=== PATIENT | female | born 1995 | race Caucasian/White ===

== ENCOUNTER 2016-09-25 21:00 | Emergency (ER) | payer SELFPAY ==
[~2016-09-25] VITALS: Ht 154.9 cm; Wt 63.5 kg
[~2016-09-25 21:00] MED LIST: ALBU1.25 IH; ALBU8.5H6 IH
[2016-09-25 21:22] VITALS: BP 145/84
--- NOTE | 2016-09-25 21:37 | PHYS DOC ---
Past Medical History Past Medical History: Asthma Past Surgical History: Other Additional Past Surgical Histo: Eye surgery as a child Alcohol Use: Occasionally Drug Use: Marijuana Adult General Chief Complaint Chief Complaint: COUGH HPI HPI Patient is a 20 year old female presents emergency department stating that she has had sinus pressure with migraine headache over the frontal sinus area. She states that she had this upper respiratory infection approximately 2 weeks which she that she had recovered. She states Friday she started developing the frontal pressure and again in the sinuses and developed a cough. She is asthmatic patient she has been doing her respiratory treatments at home with no relief. She's been taken [id number] medications for cough and congestion. Review of Systems Review of Systems Constitutional: Denies fever or chills [] Eyes: Denies change in visual acuity, redness, or eye pain [] HENT: nasal congestion denies sore throat [] Respiratory: cough with shortness of breath [] Cardiovascular: No additional information not addressed in HPI [] GI: Denies abdominal pain, nausea, vomiting, bloody stools or diarrhea [] : Denies dysuria or hematuria [] Musculoskeletal: Denies back pain or joint pain [] Integument: Denies rash or skin lesions [] Neurologic: Denies headache, focal weakness or sensory changes [] Endocrine: Denies polyuria or polydipsia [] Current Medications Current Medications Current Medications Medications (Trade) Dose Ordered Sig/Diann Start Time Stop Time Status Last Admin Dose Admin Albuterol/ Ipratropium (Duoneb) 3 ml 1X ONCE 09/25/16 21:45 09/25/16 21:46 DC 09/25/16 21:44 3 ML Prednisone (Prednisone) 40 mg 1X ONCE 09/25/16 21:45 09/25/16 21:46 DC Allergies Allergies Allergies Coded Allergies Type Severity Reaction Last Updated Verified No Known Drug Allergies 06/17/15 No Physical Exam Physical Exam Constitutional: Well developed, well nourished, no acute distress, non-toxic appearance. [] HENT: Normocephalic, atraumatic, bilateral external ears normal, oropharynx moist, no oral exudates, nose normal. Bilateral tympanic membranes appear to be bulging with redness noted. Patient with frontal and maxillary sinus tenderness noted. Patient with throat head with no erythematous no exudate noted. Eyes: PERRLA, EOMI, conjunctiva normal, no discharge. [] Neck: Normal range of motion, no tenderness, supple, no stridor. [] Cardiovascular:Heart rate regular rhythm, no murmur [] Lungs & Thorax: Bilateral breath sounds clear to auscultation [] Skin: Warm, dry, no erythema, no rash. [] Back: No tenderness Extremities: No tenderness, no cyanosis, no clubbing, ROM intact, no edema. [] Neurologic: Alert and oriented X 3, normal motor function, normal sensory function, no focal deficits noted. [] Psychologic: Affect normal, judgement normal, mood normal. [] Current Patient Data Vital Signs Vital Signs Date Time Temp Pulse Resp B/P (MAP) Pulse Ox O2 Delivery O2 Flow Rate FiO2 09/25/16 21:45 98 Room Air 09/25/16 21:22 98.2 100 22 98.2 EKG EKG [] Radiology/Procedures Radiology/Procedures [] Course & Med Decision Making Course & Med Decision Making Pertinent Labs and Imaging studies reviewed. (See chart for details) Patient was provided with a DuoNeb treatment here in the emergency department. She he was provided with steroids as well. She'll be discharged home with DuoNeb treatments, an albuterol rescue inhaler, and prednisone. She'll also be provided with Augmentin. Patient will be discharged home in stable condition signs symptoms to return back to emergency department as been provided. [] Dragon Disclaimer Dragon Disclaimer This electronic medical record was generated, in whole or in part, using a voice recognition dictation system. Departure Departure Impression: Primary Impression: Sinusitis, acute Disposition: 01 HOME, SELF-CARE Condition: STABLE Referrals: ARNULFO ROCK MD (PCP) Patient Instructions: Sinusitis, [id number] Additional Instructions: Activity as tolerated. Medications as prescribed. You may use Mucinex DM [id number] to help relieve the sinus pressure in help with cough and congestion. Drink plenty of fluids. Tylenol or ibuprofen for pain and discomfort. Follow-up with your primary care physician in the next 3-5 days. Return back to emergency prior signs symptoms of become worse. Scripts Prednisone (PREDNISONE) 20 Mg Tablet 40 MG PO DAILY for 14 Days, #28 TAB Prov: ODETTE KUMRA APRN 09/25/16 Amoxicillin/Potassium Clav (AUGMENTIN 875-125 TABLET) 1 Each Tablet 1 TAB PO BID, #20 TAB Prov: ODETTE KUMAR APRN 09/25/16 Albuterol Sulfate (PROAIR HFA INHALER) 8.5 Gm Hfa.aer.ad 1 PUFF INH PRN Q6HRS Y for SHORTNESS OF BREATH, #1 INHALER 0 Refills Prov: ODETTE KUMAR APRN 09/25/16 Ipratropium/Albuterol Sulfate (DUONEB 0.5-3(2.5) MG/3 ML) 3 Ml Ampul.neb 3 ML NEB QID, #1 EACH Prov: ODETTE KUMAR APRN 09/25/16 ODETTE KUMAR APRN September 25, 2016 21:37
[2016-09-25] MEDS ORDERED: IPRATRPIUM/ALBUTEROL 0.5/2.5MG 3 ML NEBU. NEB ONE (21:45)
[2016-09-25] MEDS ORDERED: predniSONE 20 MG TABLET PO ONE (21:45)
[2016-09-25] MEDS ORDERED: IPRA3AMP NEB (22:01)
[2016-09-25] MEDS ORDERED: PRED20TA PO (22:01)
[2016-09-25] MEDS ORDERED: AMOX1TAB61 PO (22:01)
[2016-09-25] MEDS ORDERED: PROAIR HFA8.5 GM INH (22:01)
== END 2016-09-25 22:10 | disposition home or self-care (01) ==
LOC: ER 21:00
DX: J01.90 Acute sinusitis, unspecified (principal); J45.909 Unspecified asthma, uncomplicated; F12.10 Cannabis abuse, uncomplicated
CPT/HCPCS: 94250; 94640; 99283; J7512; J7620

== ENCOUNTER 2016-12-22 19:38 | Emergency (ER) | payer BC ==
[~2016-12-22 19:38] MED LIST changes: +AMOX1TAB61 PO; +IPRA3AMP NEB; +PRED20TA PO; +PROAIR HFA8.5 GM INH
[2016-12-22 19:42] VITALS: BP 140/86
[2016-12-22] MEDS ORDERED: predniSONE 20 MG TABLET PO ONE (20:00)
[2016-12-22] MEDS ORDERED: IPRATRPIUM/ALBUTEROL 0.5/2.5MG 3 ML NEBU. NEB ONE (20:00)
--- NOTE | 2016-12-22 20:07 | PHYS DOC ---
Past Medical History Past Medical History: Asthma Past Surgical History: Other Additional Past Surgical Histo: Eye surgery as a child Alcohol Use: Occasionally Drug Use: Marijuana Adult General Chief Complaint Chief Complaint: Congestion HPI HPI Patient is a 21 year old female presents to the emergency department stating that she has been having a cough and congestion for the last 4 weeks. She states that she's been having some shortness of air difficulty breathing she's been using her albuterol inhaler. She states that she was seen here in August and was placed on antibiotic as well as prednisone. She states that this has not helped any of her problems. She states that she does smoke occasionally when she has been drinking. Patient denies fever, chills or any nausea vomiting. Review of Systems Review of Systems Constitutional: Denies fever or chills [] Eyes: Denies change in visual acuity, redness, or eye pain [] HENT: Complaining of nasal congestion and sore throat Respiratory: Complaining of cough and shortness of air Cardiovascular: No additional information not addressed in HPI [] GI: Denies abdominal pain, nausea, vomiting, bloody stools or diarrhea [] : Denies dysuria or hematuria [] Musculoskeletal: Denies back pain or joint pain [] Integument: Denies rash or skin lesions [] Neurologic: Denies headache, focal weakness or sensory changes [] Endocrine: Denies polyuria or polydipsia [] Current Medications Current Medications Current Medications Medications (Trade) Dose Ordered Sig/Diann Start Time Stop Time Status Last Admin Dose Admin Albuterol Sulfate (Ventolin Neb Soln) 2.5 mg 1X ONCE 12/22/16 20:45 12/22/16 20:52 DC 12/22/16 21:01 2.5 MG Albuterol/ Ipratropium (Duoneb) 3 ml 1X ONCE 12/22/16 20:00 12/22/16 20:06 DC 12/22/16 20:22 3 ML Prednisone (Prednisone) 40 mg 1X ONCE 12/22/16 20:00 12/22/16 20:06 DC 12/22/16 20:34 40 MG Allergies Allergies Allergies Coded Allergies Type Severity Reaction Last Updated Verified No Known Drug Allergies 06/17/15 No Physical Exam Physical Exam Constitutional: Well developed, well nourished, no acute distress, non-toxic appearance. [] HENT: Normocephalic, atraumatic, bilateral external ears normal, oropharynx moist, no oral exudates, nose normal. [] Eyes: PERRLA, EOMI, conjunctiva normal, no discharge. [] Neck: Normal range of motion, no tenderness, supple, no stridor. [] Cardiovascular:Heart rate regular rhythm, no murmur [] Lungs & Thorax: Bilateral breath sounds with wheezing noted throughout with decreased air movement noted. Skin: Warm, dry, no erythema, no rash. [] Back: No tenderness, no CVA tenderness. [] Extremities: No tenderness, no cyanosis, no clubbing, ROM intact, no edema. [] Neurologic: Alert and oriented X 3, normal motor function, normal sensory function, no focal deficits noted. [] Psychologic: Affect normal, judgement normal, mood normal. [] Current Patient Data Vital Signs Vital Signs Date Time Temp Pulse Resp B/P (MAP) Pulse Ox O2 Delivery O2 Flow Rate FiO2 12/22/16 21:01 97 Room Air 12/22/16 19:42 98.2 102 22 98.2 EKG EKG [] Radiology/Procedures Radiology/Procedures [] Course & Med Decision Making Course & Med Decision Making Pertinent Labs and Imaging studies reviewed. (See chart for details) Patient was provided with a DuoNeb treatment in which she still was continuing to have coughing and shortness of air. She is provided with prednisone here in the emergency department. Patient was divided with a second albuterol treatment in which helped with decreased coughing and the inability to move more air with breath sounds clear. Patient will be discharged home with recommendations to use her inhalers and her nebulizer machine at home. Recommended Robitussin-DM [id number]. We'll provide her with Tessalon Perles and steroids. We'll place her on an antibiotic. Recommended patient follow-up with her primary care physician next 3-5 days. Signs and symptoms to return back to emergency department as been provided. Patient agrees with discharge instructions treatment regimens and follow-up recommendations. All questions and concerns was answered at patient's bedside. [] Dragon Disclaimer Dragon Disclaimer This electronic medical record was generated, in whole or in part, using a voice recognition dictation system. Departure Departure Impression: Primary Impression: URI (upper respiratory infection) Disposition: HOME, SELF-CARE Condition: STABLE Referrals: ARNULFO ROCK MD (PCP) Patient Instructions: Upper Respiratory Infection, Adult, [id number] Additional Instructions: Activity as tolerated. Medication as prescribed. Tylenol or ibuprofen for fever chills or generalized body aches and discomfort. Continue to use her nebulizer treatments as well as her albuterol inhaler. Steroids as prescribed. Antibiotics as prescribed. Follow-up to primary care physician in the next 3-5 days. Return back to emergency prior signs symptoms of become worse. Scripts Benzonatate (TESSALON PERLE) 100 Mg Capsule 1 CAP PO TID, #21 CAP Prov: ODETTE KUMAR APRN 12/22/16 Amoxicillin/Potassium Clav (AUGMENTIN 875-125 TABLET) 1 Each Tablet 1 TAB PO BID, #20 TAB Prov: ODETTE KUMAR APRN 12/22/16 Prednisone (PREDNISONE) 20 Mg Tablet 40 MG PO DAILY for 7 Days, #14 TAB Prov: ODETTE KUMAR APRN 12/22/16 Problem Qualifiers Primary Impression: URI (upper respiratory infection) URI type: unspecified URI Qualified Codes: J06.9 - Acute upper respiratory infection, unspecified ODETTE KUMAR APRN Dec 22, 2016 20:07
[2016-12-22] MEDS ORDERED: ALBUTEROL SULFATE 2.5 MG/3 ML NEBU. NEB ONE (20:45)
[2016-12-22] MEDS ORDERED: PRED20TA PO (21:32)
[2016-12-22] MEDS ORDERED: BENZ100C PO (21:32)
[2016-12-22] MEDS ORDERED: AMOX1TAB61 PO (21:32)
--- NOTE | 2016-12-23 07:46 | RAD ---
Exam performed: 2 views of the chest. Indication: cough congestion x4 weeks Date of Service:12/22/2016 10:04 PM . Comparison : None available. Findings: PA and lateral radiographs of the chest reveal a normal cardiomediastinal contour. The lungs are clear. No pleural fluid is seen. The visualized osseous structures are unremarkable. Impression: Radiographically normal chest.
== END 2016-12-22 21:42 | disposition home or self-care (01) ==
LOC: ER 19:38
DX: J06.9 Acute upper respiratory infection, unspecified (principal); J45.909 Unspecified asthma, uncomplicated
CPT/HCPCS: 71020; 94250; 94640; 99284; J7512; J7613; J7620